=== PATIENT | male | born 1990 | race Caucasian/White ===

== ENCOUNTER → 2020-03-18 13:07 | Outpatient (CLI) | payer OTHER, SELFPAY ==
--- NOTE | 2020-03-18 | DI.CT.S_ITS ---
PROCEDURE: CT ANGIO HEAD INDICATIONS: Traumatic subarachnoid hemorrhage TECHNIQUE: Precontrast 4.5 mm thick angled axial sections acquired from the foramen magnum to the vertex. After the administration of intravenous contrast, 1 mm thick sections acquired through the [place]. Postcontrast 4.5 mm thick sections then re-acquired from the foramen magnum to the vertex. 10 mm thick anmhntr-xualbzpmg-zvbymgagio (MIP) reformats were acquired of the central intracranial vasculature. For radiation dose reduction, the following was used: automated exposure control, adjustment of mA and/or kV according to patient size. COMPARISON: Outside Facility, RG, CT ANGIO HEAD, 01/17/2018, 9:28. Outside Facility, RG, MRI BRAIN W/WO CONTRAST, 01/19/2017, 9:39. Outside Facility, RG, CT ANGIO HEAD, 02/02/2017, 8:13. FINDINGS: Image quality: Excellent. Anterior circulation: Intracranial internal carotid arteries are normal in size and flow. The flow within the paired anterior cerebral arteries is normal and symmetric. The flow within the middle cerebral arteries is normal and symmetric. Small nidus of enhancing vessels supplied by a prominent M2 branch of the left middle cerebral artery within the left sylvian fissure is stable compared to February 02, 2017 and January 17, 2018. . The anterior communicating artery is seen. No aneurysms are seen. Posterior circulation: Visualized portions of the vertebral arteries demonstrate normal caliber, and join to form a normal appearing basilar artery. Flow within the posterior cerebral arteries is normal and symmetric. No aneurysms are seen. Dural sinuses demonstrate normal postcontrast enhancement. CSF spaces: Ventricles are normal in size and shape. Basal cisterns are patent. No extra-axial fluid collections. Brain: No midline shift. No intracranial bleeds or masses. Aggarwal-white matter interface appears intact. Skull and face: Calvarium and facial bones appear intact, without suspicious lesions. Sinuses: Visualized sinuses and mastoids are clear. 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 Dictated by: Leslie Maurer MD, PhD on 03/21/2020 at 14:25 Approved by: Leslie Maurer MD, PhD on 03/21/2020 at 14:35
== END ==
DX: I60.9 Nontraumatic subarachnoid hemorrhage, unspecified (principal); Q28.2 Arteriovenous malformation of cerebral vessels
CPT/HCPCS: 70496; Q9967

== ENCOUNTER 2021-12-18 09:00 | Outpatient (RCR) | payer OTHER, SELFPAY ==
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
--- NOTE | 2021-10-14 18:00 | PT.OPPOC ---
Physical, Occupational & Speech Therapy At [facility] Current Diagnoses Pain in right knee (10/14/21) Pain in left knee (10/14/21) Pain in right ankle and joints of right foot (10/14/21) Stiffness of right ankle, not elsewhere classified (10/14/21) Pain in right lower leg (10/14/21) Visit Care Team Role Provider Type Yobani Cardoza MD Attending Provider Non-Staff Family Provider Primary Care Provider Referring Provider Specialty: Family Practice Address: [address] [place] [address], [phone] Fax: Email: Plan Of Care PT-OP-T Assessment and Plan Start: 10/14/21 14:12 Freq: Status: Active Protocol: Document 10/14/21 12:00 DCW (Rec: 10/14/21 17:55 DCW [id number]) Physical Therapy Assessment Rehab Potential Rehabilitation Potential Good Evaluation Complexity Number of Personal Factors/Comorbidities 1-2 Number of Body Systems Impaired 1-2 Clinical Presentation at Evaluation Stable Impairments Impairments Gait,Pain,ROM,Strength,Tone Goals Two Impairment Upon being placed in a neutral foot position, pt's R navicular is 6.2 cm from the floor. When pt returns to his usual standing position, pt's R navicular drops 0.9 cm to 5. 3 cm from floor. Screedman/Laborer Goal (LTG) Pt's navicular bone to measure at least 5.7 cm from floor to show decreased pronation and improve arch support in right foot. LTG Duration 11/25/21 One Impairment Pt does not have an appropriate home exercise program Short Term Goal (STG) Pt to be independent and compliant with an appropriate HEP STG Duration 11/11/21 Assessment Summary Assessment Pt presents 5 years s/p ORIF of R tib-fib fracture with continued limitations of ROM in right ankle, most notably right inversion. In standing and during gait, pt displays pronated foot position, which is likely creating much of his reported pain during high- level activities. Right inversion is likely still limited due to surgical hardware in his tib-fib, pt has a very hard end-feel at end-range inversion, and may not be able to regain that ROM at this time. Pt should, however, benefit from skilled therapy and independent HEP focusing on improving arch support, decreasing pronation and improving running pattern. Physical Therapy Plan Frequency and Duration Frequency of Treatment Every Other Week Duration of Treatment 6 weeks Plan of Care Start Date 10/14/21 Plan of Care End Date 11/25/21 Therapeutic Interventions Therapeutic Interventions Aquatic Therapy,Balance Training,Gait Training,Home Exercise Program,Joint Mobilizations,Manual Therapy, Patient/Caregiver Education, Self-Care/Home Management,Soft Tissue Mobilization, Therapeutic Activities, Therapeutic Exercises Modalities Cold Pack/Ice Massage,Hot Packs Next Visit Focus/Plan Next Note Type Treatment Note Next Visit Plan Intrinsic foot strengthening, ankle strengthening, stabilization training, manual therapy Plan of Care Dates Plan of Care Start Date 10/14/21 Plan of Care End Date 11/25/21 Electronically Signed by: Fred Jason, PT 10/14/21 1800 If you are in agreement with this Plan of Care, please return a signed and dated copy. I have reviewed this Plan of Care and certify that the skilled therapy services above are required to meet the patient?s needs. Physician Signature Date Printed Name and Credentials Clinical Instructor Signature Printed Name and Credentials
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
--- NOTE | 2021-12-18 09:48 | PT.OPPOC ---
Physical, Occupational & Speech Therapy At [facility] Current Diagnoses Pain in right knee (12/18/21) Pain in left knee (12/18/21) Pain in right ankle and joints of right foot (12/18/21) Stiffness of right ankle, not elsewhere classified (12/18/21) Pain in right lower leg (12/18/21) Visit Care Team Role Provider Type Yobani Cardoza MD Attending Provider Non-Staff Family Provider Primary Care Provider Referring Provider Specialty: Family Practice Address: [address] [place] [address], [id number] Email: Plan Of Care PT-OP-T Assessment and Plan Start: 10/14/21 14:12 Freq: Status: Active Protocol: Document 12/18/21 09:00 DCW (Rec: 12/18/21 09:48 DCW [id number]) Physical Therapy Assessment Impairments Impairments Gait,Pain,ROM,Strength,Tone Goals Two Impairment Upon being placed in a neutral foot position, pt's R navicular is 6.2 cm from the floor. When pt returns to his usual standing position, pt's R navicular drops 0.9 cm to 5. 3 cm from floor. Long-Term Goal (LTG) Pt's navicular bone to measure at least 5.7 cm from floor to show decreased pronation and improve arch support in right foot. LTG Duration Met One Impairment Pt does not have an appropriate home exercise program Short Term Goal (STG) Pt to be independent and compliant with an appropriate HEP STG Duration 12/31/21 - improving Assessment Summary Assessment Pt showing fantastic progress so far. Significantly less pronation both with shoes and in bare feet, improved inversion and eversion ROM. Pt still experiencing some sensations of tightness, as well as complaints of occasional anterior wilson pain with activity. Is moving out of the state soon, will likely do well with one more visit to review HEP and discuss any lingering problems or concerns Physical Therapy Plan Frequency and Duration Frequency of Treatment Every Other Week Duration of Treatment 2 weeks Plan of Care Start Date 12/18/21 Plan of Care End Date 01/01/22 Therapeutic Interventions Therapeutic Interventions Aquatic Therapy,Balance Training,Gait Training,Home Exercise Program,Joint Mobilizations,Manual Therapy, Patient/Caregiver Education, Self-Care/Home Management,Soft Tissue Mobilization, Therapeutic Activities, Therapeutic Exercises Modalities Cold Pack/Ice Massage,Hot Packs Next Visit Focus/Plan Next Note Type Treatment Note Next Visit Plan Intrinsic foot strengthening, ankle strengthening, stabilization training, manual therapy Plan of Care Dates Plan of Care Start Date 12/18/21 Plan of Care End Date 01/01/22 Electronically Signed by: Fred Jason, PT 12/18/21 0948 If you are in agreement with this Plan of Care, please return a signed and dated copy. I have reviewed this Plan of Care and certify that the skilled therapy services above are required to meet the patient?s needs. Physician Signature Date Printed Name and Credentials Clinical Instructor Signature Printed Name and Credentials
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
== END 2022-01-19 12:24 | disposition home or self-care (01) ==
LOC: PHYS 09:00
PROVIDERS: Family Provider Student in an Organized Health Care Education/Training Program; PCP Student in an Organized Health Care Education/Training Program; Referring Provider Student in an Organized Health Care Education/Training Program; Visit Provider Student in an Organized Health Care Education/Training Program
DX: M25.671 Stiffness of right ankle, not elsewhere classified (principal); M79.661 Pain in right lower leg; M25.561 Pain in right knee; M25.571 Pain in right ankle and joints of right foot; M25.562 Pain in left knee
CPT/HCPCS: 97110; 97112; 97140; 97161